=== PATIENT | female | born 1990 | race Caucasian/White ===

== ENCOUNTER 2019-03-20 11:01 | Inpatient (IN) ==
[2019-03-20] MEDS ORDERED: methylPREDNISolone 125 MG/2 ML VIAL IV STA (11:22)
[2019-03-20] MEDS ORDERED: ALBUT/IPRATROP 3MG/0.5MG NEB 3 ML VIAL NEB STA (11:22)
[2019-03-20] MEDS ORDERED: SODIUM CHLORIDE 0.9% 1000ML 1,000 ML IV SCH (11:30)
--- NOTE | 2019-03-20 11:40 | XRay Report ---
XR chest 1V portable CLINICAL HISTORY: Cough. SOB. Dyspnea COMPARISON STUDY: No previous studies for comparison. FINDINGS: Diffuse infiltrative process left lung. Left pleural effusion. Right lung is clear. IMPRESSION: 1. Diffuse infiltrate left hemithorax. 2. Left pleural effusion. The above report was generated using voice recognition software. It may contain grammatical, syntax or spelling errors. Electronically signed by: Donaldo Tran M.D. 03/20/2019 11:39 AM
[2019-03-20 12:16] LABS: Hematocrit (blood only) 32.7 % (37-47); Hemoglobin 11.4 g/dL (12.0-16.0); Mean Corpuscular Hemoglobin 30.3 pg (25-34); Mean Corpuscular Hgb Conc 34.9 g/dL (32-36); Platelet Count 369 K/uL (130-400); RDW Coefficient of Variation 12.9 % (11.5-14.5); RDW Standard Deviation 41.2 fL (36.4-46.3); Red Blood Count 3.76 M/uL (4.2-5.4); White Blood Count 13.25 K/uL (4.8-10.8)
[2019-03-20 12:16] LABS: Base Excess VBG 1.6 mEq/L; HCO3 VBG 26 mmol/L; PCO2 VBG 39 mmHg (38-50); PO2 VBG 23 mmHg; pH VBG 7.44 (7.36-7.41)
[2019-03-20 12:24] LABS: Oxygen Saturation VBG < 60.0 %
[2019-03-20] MEDS ORDERED: ACETAMINOPHEN 1,000 MG/100 ML VIAL IV STA (12:24)
[2019-03-20] MEDS ORDERED: KETOROLAC 30 MG/ML VIAL IV STA (12:24)
[2019-03-20 12:33] LABS: Alanine Aminotransferase 24 U/L (12-78); Albumin Level 2.3 gm/dl (3.4-5.0); Aspartate Aminotransferase 24 U/L (15-37); BUN Creatinine Ratio 19.4 (10-20); Basophils # (auto) 0.01 K/uL (0-0.2); Basophils % (auto) 0.1 %; Blood Urea Nitrogen 17 mg/dl (7-18); Calcium 8.7 mg/dl (8.5-10.1); Carbon Dioxide 26 mmol/L (21-32); Chloride 99 mmol/L (98-107); Creatinine Clr Calc Pharmacy 87.2 ml/min; Dohle Bodies 2+; Est GFR (African American) 102.3; Est GFR (Non-African American) 88.2; Glucose 88 mg/dl (70-99); Immature Granulocytes # (auto) 0.22 K/uL (0.00-0.02); Immature Granulocytes % (auto) 1.7 %; Lipase 21 U/L (73-393); Lymphocytes # (auto) 0.42 K/uL (1.2-3.4); Lymphocytes % (auto) 3.2 %; Magnesium 1.9 mg/dl (1.8-2.4); Monocytes # (auto) 0.31 K/uL (0.11-0.59); Monocytes % (auto) 2.3 %; Neutrophils # (auto) 12.29 K/uL (1.4-6.5); Neutrophils % (auto) 92.7 %; Rouleaux 1+; Sodium 133 mmol/L (136-145); Toxic Granulation 2+; Toxic Vacuolation 1+
[2019-03-20 12:44] LABS: Albumin Globulin Ratio 0.4 (0.9-2); Alkaline Phosphatase 94 U/L (45-117); Bilirubin,Total 0.5 mg/dl (0.2-1); Globulin 5.3 gm/dl (2.5-4.0); Total Protein 7.6 gm/dl (6.4-8.2); Troponin I < 0.015 ng/ml (0-0.045)
[2019-03-20 12:51] LABS: D Dimer 3790 ug/L FEU (0-500)
[2019-03-20] MEDS ORDERED: OPTIRAY 320 125ml IV PRN (13:03)
[2019-03-20 13:10] LABS: Appearance Urine Cloudy (Clear); Bacteria Urine Automated 4+ (Negative); Bilirubin Urine Negative (Negative); Blood Urine 2+ (Negative); Color Urine Yellow; Epithelial Cell Urine Auto 0-5 /lpf (0-5); Glucose Urine UA Negative (Negative); Ketones Urine Negative (Negative); Leukocyte Esterase Urine 1+ (Negative); Nitrite Urine Negative (Negative); Protein Urine 1+ (Negative); Specific Gravity Urine 1.012 (1.000-1.030); Urobilinogen Urine Negative (Negative); WBC Urine Automated >30 /hpf (0-5)
--- NOTE | 2019-03-20 13:39 | CT Scan Report ---
CT angio chest PE protocol CT DOSE: 555.23 mGy.cm HISTORY: Chest pain. Dyspnea. Atypical CXR TECHNIQUE: Multiaxial CT images of the chest were performed following the intravenous administration of contrast to evaluate the pulmonary arteries. Maximal intensity projection images were also obtaine d. A dose lowering technique was utilized adhering to the principles of ALARA. COMPARISON STUDY: Chest series same date FINDINGS: The right lung shows minimal scattered atelectatic change. There is minimal dependent right basilar change with the right lung otherwise clear. There is complete opacification of the geographic region of the left lower lobe. This primarily appea rs to represent lung consolidation with a small left pleural effusion component. The lower lobe bronchi are attenuated slightly distal to the hilum. Possibility of a component of asp iration must be raised. No evidence of pneumothorax. No acute bony abnormality. IMPRESSION: 1. Complete consolidation of the left lower lobe with truncation of the proximal left lower lobe bron chial structures.. 2. Possibly of aspiration and/or mucous plugging is considered. 3. Small left pleural effusion. 4. Minimal scattered atelectatic change of the right lung. 5. No evidence for major central pulmonary embolus. 6. Negative thoracic aorta. The above report was generated using voice recognition software. It may contain grammatical, syntax or spelling errors. Electronically signed by: Donaldo Tran M.D. 03/20/2019 1:38 PM
[2019-03-20] MEDS ORDERED: PIPERACILLIN/TAZOBACTAM 4.5 GM/120 ML BAG IV ONE (13:41)
[2019-03-20] MEDS ORDERED: VANCOMYCIN CONSULT ACTIVE PRN (13:41)
[2019-03-20] MEDS ORDERED: PIPERACILL/TAZOBAC CONSULT ACTIVE PRN (13:41)
[2019-03-20] MEDS ORDERED: VANCOMYCIN HCL 1,500 MG in SODIUM CHLORIDE 0.9% 500 ML IV ONE (13:41)
[2019-03-20] MEDS: SODIUM CHLORIDE 0.9% 1000ML 1,000 ML IV SCH ×2 (14:03→16:50)
--- NOTE | 2019-03-20 15:50 | History & Physical Report ---
Date of Service March 20, 2019 Assessment & Plan (1) Left lower lobe pneumonia: Admits to PCU on telemetry. Vital signs every 4 hours. Fluid hydration with normal saline at 100 cc/h. Started empirically vancomycin and Zosyn in the emergency room. Continue the same antibiotics since patient is allergic to cefazolin and azithromycin. Blood cultures, urine culture and sputum cultures pending. Follow-up with the results and adjust antibiotics as per upper repair specificity and sensitivity. PT lactic acid trended down from 2.1-2. Continue monitoring electrolytes and CBC and CMP. Duo nebs every 4 hours scheduled and as needed. Robitussin 10 mils p.o. every 6 hours as needed for cough. Ketorolac 15 mg IV every 6 hours as needed and Percocet 1 tablet p.o. every 4 hours as needed for pain management. Zofran for nausea. DVT prophylaxis Lovenox 40 mg subcu with nightly. Patient is a full code Present on Admission?: Yes (2) Urinary tract infection: Continue antibiotics as above. Follow-up urine culture. CT scan of abdomen and pelvis without contrast placed to rule out possible kidney stone or pyelonephritis since patient has over 30 WBC is in urine and no epithelial cells which appears to be a clean-catch. Leukocyte esterase is also elevated to 1+ nitrates were negative. Present on Admission?: Yes (3) Elevated procalcitonin: Patient is septic. Continue treating underlying disease -infection. Present on Admission?: Yes (4) Sepsis associated hypotension: As above. Continue treating underlying disease-infection. Hypotension resolved. Patient states that her blood pressure was always low. Present on Admission?: Yes History of Present Illness Chief Complaint: Cough and generalized malaise Primary Care Provider: NO PCP Patient is a 28 years old female from [place] without significant past medical history who presented to the emergency department for evaluation of fever cough and difficulty breathing. Patient states that she initially started with a low-grade fever 4 to 5 days ago. Patient denies any sick contacts. Patient is usually very healthy. Patient reports that in the past 24 hours she has worsening of her symptoms and nothing helped her to relieve it. Patient also reports having left lateral chest wall pain and cough that is becoming more productive. Patient takes control pills but denied any recent travel history. Patient was in the urgent care yesterday when she was given cough suppressant but that did not help her symptoms. This morning patient went to the urgent care again and at that point she was referred to the emergency room for further evaluation and treatment. She denies headache, dysuria, melena, nausea, vomiting. WBCs 14.68, hemoglobin 11.0 hematocrit 31.3 platelets 356, d- dimer 3790. ABG pH 7.44 PCO2 39, PO2 23, HCO3 26, sodium 133, potassium 3, chloride 99, BUN 17, creatinine 0.9, GFR 88.2 lactate 2.1 repeated 2, AST 24, ALT 24, troponin 0.015, Albumin 2.3, procalcitonin 9.6, TSH 1.44. Urine is cloudy with 1+, urine bacteria 4+, protein, 2+ blood, leukocyte esterase 1+, urine WBCs 30,urine test negative. Influenza AMB negative. CTA of the chest shows complete consolidation of the left lower lobe with truncation of the proximal left lower lobe bronchial strictures. Possibly of aspiration and of mucous plugging is considered. Small left pleural effusion. Minimal scattered atelectatic changes of the right lung. No evidence of major central pulmonary embolus. Negative thoracic aorta. Patient is not on her period. Decision was made to admit patient for pneumonia and further evaluation and treatment. Allergies Allergy/AdvReac Type Severity Reaction Status Date / Time azithromycin Allergy Mild Hives Unverified 03/20/19 13:19 cefazolin Allergy Mild Hives Unverified 03/20/19 13:19 Home Medications Home Medications Medication Instructions Recorded Confirmed Type Control 1 tab PO DAILY 03/20/19 03/20/19 History levomilnacipran [Fetzima] 120 mg PO 03/20/19 History lisdexamfetamine [Vyvanse] 40 mg PO DAILY 03/20/19 03/20/19 History multivitamin 1 tab PO DAILY 03/20/19 03/20/19 History Past Med/Surg History Medical History No chronic diseases present Surgical History No significant past surgical history Social History Preferred Language: Bulgarian Communication Ability: Effective Beliefs That Will Affect Care: None Current Living Situation: Parent Other Information That Helps Us Care for You: No Feels Safe at Home: Yes Safety Concerns: Feels Safe At This Time Smoking Status: Never smoker Hx Alcohol Use: Yes Hx Substance Use: No Review of Systems Review of Systems: All systems reviewed & are unremarkable except as noted in HPI & below Physical Exam Constitutional: WD/WN, vitals as above well developed and + obese Eyes: PERRL, conjunctivae normal, anicteric sclerae ENMT: external ear and nose normal, oropharynx normal Neck: trachea midline, no thyromegaly Respiratory: + respiratory distress, + labored breathing, + dullness to percussion, + cough and + tachypneic Auscultation: + crackles and + wheezes Cardiovascular: Rate/Rhythm: + tachycardic Heart Sounds: normal S1 and normal S2 Vessels: dorsalis pedis pulses present Chest (Breasts): normal inspection/palpation of breasts Gastrointestinal (Abdomen): normal bowel sounds, soft, nontender, no hepatosplenomegaly Musculoskeletal: no cyanosis or clubbing, extremities motor strength 5/5 Skin: no rashes, warm and dry Neurologic: patellar DTR's 2+ bilat, sensation intact Psychiatric: A+Ox3, euthymic affect Genitourinary: No suprapubic tenderness or costovertebral angle tenderness Lymphatic: no cervical or axillary lymphadenopathy Results & Data Vital Signs (Past 12 Hours) Vital Signs Temp Pulse Pulse Resp BP BP Pulse Ox 03/20/19 15:00 124 H 30 H 102/64 99 03/20/19 14:00 124 H 27 H 102/64 98 03/20/19 12:07 135 H 36 H 106/65 95 03/20/19 11:44 134 H 28 H 93 03/20/19 11:24 132 H 95 03/20/19 11:05 36.9 C 136 H 26 H 107/71 93 Code Status & VTE Plan Code Status Full code VTE Prophylaxis Plan VTE Prophylaxis will be ordered: Yes PG Care Time/CCT Total # of Minutes Spent Total Time Spent with Patient: Total time spent is greater than 50% in coordination of care (as documented) at patient's floor/unit and/or counseling patient: (1) Left lower lobe pneumonia Pneumonia type: due to unspecified organism Qualified Code(s): J18.9 - Pneumonia, unspecified organism
[2019-03-20] MEDS ORDERED: ACETAMINOPHEN 325 MG TAB PO PRN (16:29)
[2019-03-20] MEDS ORDERED: ALUMINUM/MAGNESIUM SUSP 30 ML UDC PO PRN (16:29)
[2019-03-20] MEDS ORDERED: ZOLPIDEM TARTRATE 5 MG TAB PO PRN (16:29)
[2019-03-20] MEDS ORDERED: POLYETHYLENE (MIRALAX) 17 GM PACK PO PRN (16:29)
[2019-03-20] MEDS ORDERED: ONDANSETRON INJ 2 MG/ML 2 ML VIAL IV PRN (16:29)
[2019-03-20] MEDS ORDERED: MAGNESIUM HYDROXIDE SUSP 30 ML UDC PO PRN (16:29)
--- NOTE | 2019-03-20 16:33 | Emergency Department Note ---
History of Present Illness General Chief complaint: Respiratory Problems Stated complaint: COUGH, CONGESTION, LOW O2 Time Seen by Provider: 03/20/19 11:14 History of Present Illness Maximum Pain Intensity: 7 This is a 28-year-old female presenting to the emergency department for evaluation of fever, coughing, and difficulty breathing. The patient states that she initially started with a low-grade fever 4 or 5 days ago. She does not have any known exposure to disease and states that she is usually healthy. Over the past 24 hours she has had worsening of her symptoms. She is having very left lateral chest wall pain and the cough is becoming more productive. The patient is on control but denies any recent travel history. No extremity swelling. She went to an urgent care clinic yesterday, where she was given a cough suppressant that did not help her symptoms. She returned to an urgent care clinic this morning, and was referred to the ER for further management. She rates her overall discomfort a 7/10. Home Medications Home Medications Medication Instructions Recorded Confirmed Type Control 1 tab PO DAILY 03/20/19 03/20/19 History levomilnacipran [Fetzima] mg PO 03/20/19 History lisdexamfetamine [Vyvanse] 40 mg PO DAILY 03/20/19 03/20/19 History multivitamin 1 tab PO DAILY 03/20/19 03/20/19 History Allergies Allergy/AdvReac Type Severity Reaction Status Date / Time azithromycin Allergy Mild Hives Unverified 03/20/19 13:19 cefazolin Allergy Mild Hives Unverified 03/20/19 13:19 Past Med/Surg History Medical History (Updated 03/20/19 @ 16:43 by Shar Moya PA-C) No chronic diseases present Surgical History (Updated 03/20/19 @ 16:26 by Shar Moya PA-C) No significant past surgical history Social History Preferred Language: [place] Communication Ability: Effective Beliefs That Will Affect Care: None Current Living Situation: Parent Other Information That Helps Us Care for You: No Feels Safe at Home: Yes Safety Concerns: Feels Safe At This Time Smoking Status: Never smoker Hx Alcohol Use: Yes Hx Substance Use: No Review of Systems A total of 10 systems reviewed and were otherwise negative Physical Exam Vital Signs Vital Signs - 24 hr 03/20/19 11:05 03/20/19 11:24 03/20/19 11:44 Temperature 36.9 C Temperature Source Oral Pulse Rate 136 H 132 H Pulse Rate [Apical] 134 H Pulse Rhythm Regular Respiratory Rate 26 H 28 H Respiratory Effort / Characteristics Spontaneous Spontaneous Labored Short of Breath Respiratory Depth Respiratory Pattern Blood Pressure 107/71 Blood Pressure [Right Arm] Blood Pressure Mean 83 Blood Pressure Mean [Right Arm] Blood Pressure Position [Right Arm] Pulse Oximetry 93 95 93 Oxygen Delivery Method Room Air Room Air Room Air Oxygen Flow Rate Sepsis Recent Fever Within 48 Hours Yes Sepsis New/Unexplained Change in Mental Status No Sepsis Action Taken by Nursing No Action Required 03/20/19 12:07 03/20/19 14:00 03/20/19 15:00 Temperature Temperature Source Pulse Rate Pulse Rate [Apical] 135 H 124 H 124 H Pulse Rhythm Respiratory Rate 36 H 27 H 30 H Respiratory Effort / Characteristics Short of Breath Non-Labored Spontaneous Spontaneous Respiratory Depth Normal Normal Respiratory Pattern Regular Blood Pressure Blood Pressure [Right Arm] 106/65 102/64 102/64 Blood Pressure Mean Blood Pressure Mean [Right Arm] 78 76 76 Blood Pressure Position [Right Arm] Lying Sitting Lying Pulse Oximetry 95 98 99 Oxygen Delivery Method Room Air Nasal Cannula Nasal Cannula Oxygen Flow Rate 2 2 Sepsis Recent Fever Within 48 Hours Sepsis New/Unexplained Change in Mental Status Sepsis Action Taken by Nursing VITALS: Vitals are noted on the nurse's note and reviewed by myself. Vital signs with tachycardia and tachypnea. GENERAL: Ill-appearing white female who is coughing HEAD: Normocephalic atraumatic. EARS: External ear normal. External auditory canals clear, tympanic membranes pearly sanz without erythema or effusion bilaterally. EYES: Pupils equal round and reactive to light and accommodation. Conjunctivae without injection, sclerae without icterus. Extraocular movements intact. NOSE: Patent, turbinates without inflammation or discharge. MOUTH: Mucous membranes moist. Tonsils are not enlarged. Pharynx without erythema, blood, or exudate. Uvula midline. Airway patent. NECK: Supple without nuchal rigidity. No lymphadenopathy. No thyromegaly. Cer vical spine is nontender. HEART: Regular rate and rhythm without murmurs gallops or rubs. LUNGS: Diminished left-sided breath sounds. ABDOMEN: Positive normal bowel sounds x 4. Soft, nontender, without masses or organomegaly. MUSCULOSKELETAL: No muscle atrophy, erythema, or edema noted. Full range of motion in all extremities. NEURO: Patient was alert and oriented to person place and time. CN II through XII grossly intact. Course Administered Medications Discontinued Medications Albuterol (Duoneb) 3 ml NEB NOW STA Stop: 03/20/19 11:23 Last Admin: 03/20/19 11:42 Dose: 3 ml Documented by: [id number] Sodium Chloride (Nss 1000ml) 1,000 mls @ 999 mls/hr IV .Q1H1M E[place] Stop: 03/20/19 12:30 Last Infusion: 03/20/19 13:13 Dose: 0 mls/hr Documented by: [id number] Admin: 03/20/19 12:05 Dose: 999 mls/hr Documented by: [id number] Acetaminophen (Ofirmev) 1,000 mg in 100 mls @ 400 mls/hr IV NOW STA Stop: 03/20/19 12:38 Last Infusion: 03/20/19 13:13 Dose: 0 mls/hr Documented by: [id number] Admin: 03/20/19 12:41 Dose: 400 mls/hr Documented by: [id number] Vancomycin HCl 1,500 mg/ (Sodium Chloride) 530 mls @ 200 mls/hr IV NOW ONE Stop: 03/20/19 16:19 Last Admin: 03/20/19 14:54 Dose: 200 mls/hr Documented by: [id number] Piperacillin Sod/Tazobactam Sod (Zosyn) 4.5 gm in 120 mls @ 240 mls/hr IV NOW ONE Stop: 03/20/19 14:10 Last Infusion: 03/20/19 15:04 Dose: 0 mls/hr Documented by: [id number] Admin: 03/20/19 14:02 Dose: 240 mls/hr Documented by: [id number] Sodium Chloride (Nss 1000ml) 1,000 mls @ 999 mls/hr IV .Q1H1M [place] Stop: 03/20/19 15:44 Last Infusion: 03/20/19 15:04 Dose: 0 mls/hr Documented by: [id number] Admin: 03/20/19 14:03 Dose: 999 mls/hr Documented by: [id number] Ioversol (Optiray 320 125ml) 82 ml IV ONCE PRN PRN Reason: Interaction Checking Stop: 03/24/19 13:02 Last Admin: 03/20/19 13:05 Dose: 82 ml Documented by: [id number] Ketorolac Tromethamine (Toradol) 30 mg IV NOW STA Stop: 03/20/19 12:25 Last Admin: 03/20/19 12:41 Dose: 30 mg Documented by: [id number] Methylprednisolone (Solumedrol) 125 mg IV NOW STA Stop: 03/20/19 11:23 Last Admin: 03/20/19 12:05 Dose: 125 mg Documented by: [id number] Medical Decision Making Differential Diagnosis Differential diagnosis: Etiologies such as viral syndrome, otitis, pharyngitis, pneumonia, influenza, meningitis, urinary tract infection, septic arthritis, soft tissue infectious process, intra-abdominal process, sepsis, bacteremia, as well as others were entertained. Laboratory Data Result diagrams: 03/20/19 11:58 03/20/19 11:58 Lab Results 03/20/19 03/20/19 03/20/19 Range/Units 11:35 11:58 11:58 WBC 13.25 H (4.8-10.8) K/uL RBC 3.76 L (4.2-5.4) M/uL Hgb 11.4 L (12.0-16.0) g/dL Hct 32.7 L (37-47) % MCV 87.0 (80-100) fL MCH 30.3 (25-34) pg MCHC 34.9 (32-36) g/dL RDW Std Deviation 41.2 (36.4-46.3) fL RDW Coeff of Hilton 12.9 (11.5-14.5) % Plt Count 369 (130-400) K/uL MPV 9.0 (7.4-10.4) fL Immature Gran % (Auto) 1.7 % Neut % (Auto) 92.7 % Lymph % (Auto) 3.2 % Falls % (Auto) 2.3 % Eos % (Auto) 0.0 % Baso % (Auto) 0.1 % Immature Gran # (Auto) 0.22 H (0.00-0.02) K/uL Neut # (Auto) 12.29 H (1.4-6.5) K/uL Lymph # (Auto) 0.42 L (1.2-3.4) K/uL Falls # (Auto) 0.31 (0.11-0.59) K/uL Eos # (Auto) 0.00 (0-0.5) K/uL Baso # (Auto) 0.01 (0-0.2) K/uL Toxic Granulation 2+ Toxic Vacuolation 1+ Dohle Bodies 2+ Rouleaux 1+ D-Dimer 3790 H* (0-500) ug/L FEU VBG pH (7.36-7.41) VBG pCO2 (38-50) mmHg VBG pO2 mmHg VBG HCO3 mmol/L VBG O2 Saturation % VBG Base Excess mEq/L Barometric Pressure mm/Hg Sodium (136-145) mmol/L Potassium (3.5-5.1) mmol/L Chloride (98-107) mmol/L Carbon Dioxide (21-32) mmol/L Anion Gap (3-11) BUN (7-18) mg/dl Creatinine (0.6-1.2) mg/dl Est Cr Clr Drug Dosing ml/min Est GFR ( Amer) Est GFR (Non-Af Amer) BUN/Creatinine Ratio (10-20) Glucose (70-99) mg/dl Lactate (0.4-2.0) mmol/L Calcium (8.5-10.1) mg/dl Magnesium (1.8-2.4) mg/dl Total Bilirubin (0.2-1) mg/dl AST (15-37) U/L ALT (12-78) U/L Alkaline Phosphatase (45-117) U/L Troponin I (0-0.045) ng/ml Total Protein (6.4-8.2) gm/dl Albumin (3.4-5.0) gm/dl Globulin (2.5-4.0) gm/dl Albumin/Globulin Ratio (0.9-2) Lipase (73-393) U/L Procalcitonin (0-0.5) ng/ml TSH (0.300-4.500) uIu/ml Urine Color Urine Appearance (Clear) Urine pH (4.5-7.5) Ur Specific [place] (1.000-1.030) Urine Protein (Negative) Urine Glucose (UA) (Negative) Urine Ketones (Negative) Urine Blood (Negative) Urine Nitrite (Negative) Urine Bilirubin (Negative) Urine Urobilinogen (Negative) Ur Leukocyte Esterase (Negative) Urine WBC (Auto) (0-5) /hpf Urine RBC (Auto) (0-4) /hpf U Hyaline Cast (Auto) (0-5) /lpf U Epithel Cells (Auto) (0-5) /lpf Urine Bacteria (Auto) (Negative) POC Ur Test (NEG) Influenza Type A Ag Neg for Influ A (Neg) Influenza Type B Ag Neg for Influ B (Neg) 03/20/19 03/20/19 03/20/19 Range/Units 11:58 11:58 11:58 WBC (4.8-10.8) K/uL RBC (4.2-5.4) M/uL Hgb (12.0-16.0) g/dL Hct (37-47) % MCV (80-100) fL MCH (25-34) pg MCHC (32-36) g/dL RDW Std Deviation (36.4-46.3) fL RDW Coeff of Hilton (11.5-14.5) % Plt Count (130-400) K/uL MPV (7.4-10.4) fL Immature Gran % (Auto) % Neut % (Auto) % Lymph % (Auto) % Falls % (Auto) % Eos % (Auto) % Baso % (Auto) % Immature Gran # (Auto) (0.00-0.02) K/uL Neut # (Auto) (1.4-6.5) K/uL Lymph # (Auto) (1.2-3.4) K/uL Falls # (Auto) (0.11-0.59) K/uL Eos # (Auto) (0-0.5) K/uL Baso # (Auto) (0-0.2) K/uL Toxic Granulation Toxic Vacuolation Dohle Bodies Rouleaux D-Dimer (0-500) ug/L FEU VBG pH (7.36-7.41) VBG pCO2 (38-50) mmHg VBG pO2 mmHg VBG HCO3 mmol/L VBG O2 Saturation % VBG Base Excess mEq/L Barometric Pressure mm/Hg Sodium 133 L (136-145) mmol/L Potassium 3.0 L (3.5-5.1) mmol/L Chloride 99 (98-107) mmol/L Carbon Dioxide 26 (21-32) mmol/L Anion Gap 8.0 (3-11) BUN 17 (7-18) mg/dl Creatinine 0.90 (0.6-1.2) mg/dl Est Cr Clr Drug Dosing 87.2 ml/min Est GFR ( Amer) 102.3 Est GFR (Non-Af Amer) 88.2 BUN/Creatinine Ratio 19.4 (10-20) Glucose 88 (70-99) mg/dl Lactate 2.1 H* (0.4-2.0) mmol/L Calcium 8.7 (8.5-10.1) mg/dl Magnesium 1.9 (1.8-2.4) mg/dl Total Bilirubin 0.5 (0.2-1) mg/dl AST 24 (15-37) U/L ALT 24 (12-78) U/L Alkaline Phosphatase 94 (45-117) U/L Troponin I < 0.015 (0-0.045) ng/ml Total Protein 7.6 (6.4-8.2) gm/dl Albumin 2.3 L (3.4-5.0) gm/dl Globulin 5.3 H (2.5-4.0) gm/dl Albumin/Globulin Ratio 0.4 L (0.9-2) Lipase 21 L (73-393) U/L Procalcitonin 9.60 H (0-0.5) ng/ml TSH 1.440 (0.300-4.500) uIu/ml Urine Color Urine Appearance (Clear) Urine pH (4.5-7.5) Ur Specific [place] (1.000-1.030) Urine Protein (Negative) Urine Glucose (UA) (Negative) Urine Ketones (Negative) Urine Blood (Negative) Urine Nitrite (Negative) Urine Bilirubin (Negative) Urine Urobilinogen (Negative) Ur Leukocyte Esterase (Negative) Urine WBC (Auto) (0-5) /hpf Urine RBC (Auto) (0-4) /hpf U Hyaline Cast (Auto) (0-5) /lpf U Epithel Cells (Auto) (0-5) /lpf Urine Bacteria (Auto) (Negative) POC Ur Test (NEG) Influenza Type A Ag (Neg) Influenza Type B Ag (Neg) 03/20/19 03/20/19 03/20/19 Range/Units 12:03 12:45 12:45 WBC (4.8-10.8) K/uL RBC (4.2-5.4) M/uL Hgb (12.0-16.0) g/dL Hct (37-47) % MCV (80-100) fL MCH (25-34) pg MCHC (32-36) g/dL RDW Std Deviation (36.4-46.3) fL RDW Coeff of Hilton (11.5-14.5) % Plt Count (130-400) K/uL MPV (7.4-10.4) fL Immature Gran % (Auto) % Neut % (Auto) % Lymph % (Auto) % Falls % (Auto) % Eos % (Auto) % Baso % (Auto) % Immature Gran # (Auto) (0.00-0.02) K/uL Neut # (Auto) (1.4-6.5) K/uL Lymph # (Auto) (1.2-3.4) K/uL Falls # (Auto) (0.11-0.59) K/uL Eos # (Auto) (0-0.5) K/uL Baso # (Auto) (0-0.2) K/uL Toxic Granulation Toxic Vacuolation Dohle Bodies Rouleaux D-Dimer (0-500) ug/L FEU VBG pH 7.44 H (7.36-7.41) VBG pCO2 39 (38-50) mmHg VBG pO2 23 mmHg VBG HCO3 26 mmol/L VBG O2 Saturation < 60.0 % VBG Base Excess 1.6 mEq/L Barometric Pressure 733.1 mm/Hg Sodium (136-145) mmol/L Potassium (3.5-5.1) mmol/L Chloride (98-107) mmol/L Carbon Dioxide (21-32) mmol/L Anion Gap (3-11) BUN (7-18) mg/dl Creatinine (0.6-1.2) mg/dl Est Cr Clr Drug Dosing ml/min Est GFR ( Amer) Est GFR (Non-Af Amer) BUN/Creatinine Ratio (10-20) Glucose (70-99) mg/dl Lactate (0.4-2.0) mmol/L Calcium (8.5-10.1) mg/dl Magnesium (1.8-2.4) mg/dl Total Bilirubin (0.2-1) mg/dl AST (15-37) U/L ALT (12-78) U/L Alkaline Phosphatase (45-117) U/L Troponin I (0-0.045) ng/ml Total Protein (6.4-8.2) gm/dl Albumin (3.4-5.0) gm/dl Globulin (2.5-4.0) gm/dl Albumin/Globulin Ratio (0.9-2) Lipase (73-393) U/L Procalcitonin (0-0.5) ng/ml TSH (0.300-4.500) uIu/ml Urine Color Yellow Urine Appearance Cloudy A (Clear) Urine pH 6.0 (4.5-7.5) Ur Specific [place] 1.012 (1.000-1.030) Urine Protein 1+ H (Negative) Urine Glucose (UA) Negative (Negative) Urine Ketones Negative (Negative) Urine Blood 2+ H (Negative) Urine Nitrite Negative (Negative) Urine Bilirubin Negative (Negative) Urine Urobilinogen Negative (Negative) Ur Leukocyte Esterase 1+ H (Negative) Urine WBC (Auto) >30 H (0-5) /hpf Urine RBC (Auto) 10-30 H (0-4) /hpf U Hyaline Cast (Auto) 1-5 (0-5) /lpf U Epithel Cells (Auto) 0-5 (0-5) /lpf Urine Bacteria (Auto) 4+ H (Negative) POC Ur Test NEG (NEG) Influenza Type A Ag (Neg) Influenza Type B Ag (Neg) Imaging Data Radiologist's Impression: XR chest 1V portable CLINICAL HISTORY: Cough. SOB. Dyspnea COMPARISON STUDY: No previous studies for comparison. FINDINGS: Diffuse infiltrative process left lung. Left pleural effusion. Right lung is clear. IMPRESSION: 1. Diffuse infiltrate left hemithorax. 2. Left pleural effusion. CT angio chest PE protocol CT DOSE: 555.23 mGy.cm HISTORY: Chest pain. Dyspnea. Atypical CXR TECHNIQUE: Multiaxial CT images of the chest were performed following the intrav enous administration of contrast to evaluate the pulmonary arteries. Maximal intensity projection images were also obtained. A dose lowering technique was utilized adhering to the principles of ALARA. COMPARISON STUDY: Chest series same date FINDINGS: The right lung shows minimal scattered atelectatic change. There is minimal dependent right basilar change with the right lung otherwise clear. There is complete opacification of the geographic region of the left lower lobe. This primarily appears to represent lung consolidation with a small left pleural effusion component. The lower lobe bronchi are attenuated slightly distal to the hilum. Possibility of a component of aspiration must be raised. No evidence of pneumothorax. No acute bony abnormality. IMPRESSION: 1. Complete consolidation of the left lower lobe with truncation of the proximal left lower lobe bronchial structures.. 2. Possibly of aspiration and/or mucous plugging is considered. 3. Small left pleural effusion. 4. Minimal scattered atelectatic change of the right lung. 5. No evidence for major central pulmonary embolus. 6. Negative thoracic aorta. ECG Data Additional Comments: Sinus tachycardia @129bpm No Acute ST elevation Moderate voltage criteria for LVH, may be normal variant Borderline ECG No previous ECGs available MDM Narrative Physical exam and history were performed. Nursing notes, EMR, and Medication List were personally reviewed. Patient appears to have illness symptoms for the past several days. The patient appears ill on exam. IV access was established and labs were obtained. She was given a DuoNeb and IV Solu-Medrol. She was hydrated with normal saline. Portable chest x-ray was performed, and was reviewed by myself and radiology. Portable chest x-ray appears to show diffuse left sided pneumonia. Because of this blood cultures were gathered. Case was discussed with my attending. The patient's blood work is as above and was reviewed. She does have an elevated white blood cell count of 13,000. She does not have a significant anemia. Lipase and transaminases are not diagnostic. Troponin x1 is negative. Lactic is slightly elevated at 2.1 with cultures pending. Procalcitonin is markedly elevated at 9.6. Her d-dimer is nearly [address] scan was performed. She is without obvious infectious findings in her urine and is not . Of note she is not having UTI symptoms. Influenza swab is negative. The patient's CT scan was reviewed by myself and radiology. CT scan shows what appears to be an extensive left-sided pneumonia. I did discuss the patient's allergies with pharmacy and elected to start her on vancomycin and Zosyn here. The patient was given additional fluids. Overall the patient does not appear well for discharge home. She has an extensive pneumonia with an elevated lactic and elevated procalcitonin. She c ertainly could be septic. Of note I did provide her Toradol and Tylenol for some left-sided chest wall pain, which I suspect is from the pneumonia itself. Her cardiac testing is normal. I did discuss the case with the on-call hospitalist who agreed to evaluate the patient. Please see their dictation for further patient course, plan, and disposition. The chart was completed utilizing [employer] Speech Voice Recognition Software. Grammatical errors, random word insertions, pronoun errors, and incomplete sentences are an occasional consequence of this system due to software limitations, ambient noise, and hardware issues. Any formal questions or concerns about the content, text, or information contained within the body of this dictation should be directly addressed to the provider for clarification. . Impression & Plan Left lower lobe pneumonia, Elevated lactic acid level, Elevated procalcitonin Discharge Plan Visit Data *Final* Discharge Date/Time: 03/20/19 16:00 Chief Complaint: Respiratory Problems Stated Complaint: COUGH, CONGESTION, LOW O2 ED Provider: Doc Alvarez ED Midlevel Provider: Shar Moya Discharge Problem: Left lower lobe pneumonia, Elevated lactic acid level, Elevated procalcitonin Patient Disposition: Home - Self-Care Discharge Instructions Interventions: ED Discharge Assessment Last Done: 03/20/19 16:00 Discharge Problem: Left lower lobe pneumonia Qualifiers: Pneumonia type: due to unspecified organism Qualified Code(s): J18.9 - Pneumonia, unspecified organism
[2019-03-20 17:11] LABS: Hematocrit (blood only) 31.3 % (37-47); Mean Corpuscular Hemoglobin 30.6 pg (25-34); Mean Corpuscular Hgb Conc 35.1 g/dL (32-36); Mean Corpuscular Volume 87.2 fL (80-100); Mean Platelet Volume 8.9 fL (7.4-10.4); Platelet Count 356 K/uL (130-400); RDW Coefficient of Variation 12.9 % (11.5-14.5); RDW Standard Deviation 41.7 fL (36.4-46.3); Red Blood Count 3.59 M/uL (4.2-5.4); White Blood Count 14.68 K/uL (4.8-10.8)
[2019-03-20 17:39] LABS: Basophils # (auto) 0.01 K/uL (0-0.2); Basophils % (auto) 0.1 %; Dohle Bodies 1+; Immature Granulocytes % (auto) 1.4 %; Lymphocytes # (auto) 0.28 K/uL (1.2-3.4); Lymphocytes % (auto) 1.9 %; Monocytes # (auto) 0.33 K/uL (0.11-0.59); Monocytes % (auto) 2.2 %; Neutrophils # (auto) 13.86 K/uL (1.4-6.5); Neutrophils % (auto) 94.4 %; Toxic Granulation 1+; Toxic Vacuolation 1+
[2019-03-20] MEDS: MULTIVITAMIN TAB PO SCH (17:50)
[2019-03-20] MEDS: NSS + 20MEQ KCL 20 MEQ/1,000 ML BAG IV SCH (17:50)
[2019-03-20] MEDS: OXYCODONE/ACETAMINOPHEN 5mg/325mg TAB PO PRN (17:54)
[2019-03-20] MEDS: ALBUT/IPRATROP 3MG/0.5MG NEB 3 ML VIAL NEB SCH ×2 (18:57→22:46)
[2019-03-20] MEDS: PIPERACILLIN/TAZOBACTAM 3.375 GM in DEXTROSE 5% 100 ML IV SCH (20:25)
[2019-03-20] MEDS: ENOXAPARIN INJ 40 MG/0.4 ML SYR SQ SCH (20:26)
--- NOTE | 2019-03-20 21:49 | CT Scan Report ---
CT abd pelvis wo con CT DOSE: 828.94 mGy.cm HISTORY: hematuria, pyelo? TECHNIQUE: Multiaxial CT images of the abdomen and pelvis were performed without contrast. A dose lo wering technique was utilized adhering to the principles of ALARA. COMPARISON STUDY: CT chest 03/20/2019 FINDINGS: Complete consolidative change of the left lower lobe with truncation the lower lobe bronchi al structures is again noted. Mild hepatomegaly. Spleen is unremarkable. Kidneys negative for hydronephrosis. Residual contrast from prior contrast study is present. Pancreas is unremarkable. Nonobstructive bowel pattern. Normal appendix. Possible mild small bowel enteritis. Uterus is anteflexed. No free fluid of significance within the pelvic cul-de-sac. Small bilateral ova mandy flexure cyst. IMPRESSION: 1. Unchanged complete consolidative change left lower lobe. 2. Mild cardiomegaly. 3. Mild small bowel enteritis. 4. Otherwise negative study. The appendix is normal. The above report was generated using voice recognition software. It may contain grammatical, syntax or spelling errors. Electronically signed by: Donaldo Tran M.D. 03/20/2019 9:47 PM
--- NOTE | 2019-03-20 21:55 | Pharmacy Report ---
Pharmacy Abx Dose Short Note - Date of Service March 20, 2019 - Assessment & Plan Assessment 28 year old F receiving IV Vancomycin and Zosyn for treatment of sepsis secondary to pneumonia Day # 1 of antimicrobial therapy. * Patient received Vancomycin 1500mg (~21mg/kg) IV x 1 as a loading dose * No renal impairment noted. Most recent sCr = 0.9 mg/dL, estimated CrCl ~87 mL/min. Estimated pharmacokinetics: * Ke ~0.077/hr, T1/2 ~9 hrs Plan Vancomycin * Initiate dose of 1000 mg (14mg/kg) IV every 8 hours * Goal trough level for pneumonia : 15 to 20 mcg/mL * Trough level ordered for: 03/22/19 @ 0530 * MRSA nasal swab ordered to assist with potential de-escalation Zosyn * Zosyn 4.5g IV x 1 given as loading dose in the ED * Initiate Zosyn 3.375g IV q8 (extended infusion over 4 hours) for CrCl >20 mL/min Pharmacy will continue to follow and will adjust dose/frequency as necessary. Thank you.
[2019-03-20] MEDS: VANCOMYCIN HCL 1,000 MG in SODIUM CHLORIDE 0.9% 250 ML IV SCH (22:03)
[2019-03-20] MEDS: KETOROLAC TROMETHAMINE 15 MG/ML VIAL IV PRN (22:04)
[2019-03-20] MEDS: GUAIFENESIN/DEXTROM SYRUP 200MG/20MG 10ML UDC PO PRN (23:18)
[2019-03-21] MEDS: [UNRECOGNIZED DRUG - REMARK] SCH ×2 (00:31→09:26)
[2019-03-21] MEDS: ALBUT/IPRATROP 3MG/0.5MG NEB 3 ML VIAL NEB SCH ×6 (03:10→22:12)
[2019-03-21] MEDS: NSS + 20MEQ KCL 20 MEQ/1,000 ML BAG IV SCH (03:16)
[2019-03-21] MEDS: PIPERACILLIN/TAZOBACTAM 3.375 GM in DEXTROSE 5% 100 ML IV SCH (03:17)
[2019-03-21] MEDS: KETOROLAC TROMETHAMINE 15 MG/ML VIAL IV PRN ×3 (04:33→22:41)
[2019-03-21] MEDS: VANCOMYCIN HCL 1,000 MG in SODIUM CHLORIDE 0.9% 250 ML IV SCH (06:11)
[2019-03-21 06:21] LABS: Hematocrit (blood only) 29.2 % (37-47); Mean Corpuscular Hemoglobin 29.7 pg (25-34); Mean Corpuscular Hgb Conc 34.2 g/dL (32-36); Mean Corpuscular Volume 86.6 fL (80-100); Mean Platelet Volume 9.4 fL (7.4-10.4); Platelet Count 348 K/uL (130-400); RDW Coefficient of Variation 13.3 % (11.5-14.5); RDW Standard Deviation 42.3 fL (36.4-46.3); Red Blood Count 3.37 M/uL (4.2-5.4); White Blood Count 15.15 K/uL (4.8-10.8)
[2019-03-21 06:53] LABS: Albumin Level 1.9 gm/dl (3.4-5.0); BUN Creatinine Ratio 16.8 (10-20); Calcium 8.5 mg/dl (8.5-10.1); Creatinine Clr Calc Pharmacy 118.4 ml/min; Est GFR (African American) 140.6; Est GFR (Non-African American) 121.3; Potassium 3.1 mmol/L (3.5-5.1)
[2019-03-21 06:57] LABS: Albumin Globulin Ratio 0.4 (0.9-2); Bilirubin,Total 0.3 mg/dl (0.2-1); Globulin 4.9 gm/dl (2.5-4.0); Total Protein 6.8 gm/dl (6.4-8.2)
[2019-03-21 07:01] LABS: Basophils # (auto) 0.01 K/uL (0-0.2); Basophils % (auto) 0.1 %; Dohle Bodies 1+; Immature Granulocytes # (auto) 0.07 K/uL (0.00-0.02); Immature Granulocytes % (auto) 0.5 %; Lymphocytes # (auto) 0.49 K/uL (1.2-3.4); Lymphocytes % (auto) 3.2 %; Monocytes # (auto) 0.53 K/uL (0.11-0.59); Monocytes % (auto) 3.5 %; Neutrophils # (auto) 14.05 K/uL (1.4-6.5); Neutrophils % (auto) 92.7 %; Toxic Granulation 3+
[2019-03-21] MEDS: MULTIVITAMIN TAB PO SCH (11:32)
[2019-03-21] MEDS: LEVOMILNACIPRAN HCL PO SCH (11:32)
[2019-03-21] MEDS ORDERED: VYVANSE PO SCH ×2 (12:00)
--- NOTE | 2019-03-21 13:16 | Hospitalist Progress Note ---
Date of Service March 21, 2019 Assessment & Plan (1) Left lower lobe pneumonia: Community-acquired pneumonia. CT chest on 03/20 showed dense LLL consolidation. Has a history of two prior pneumonias requiring hospitalization in middle school (15 years ago), but no current asthma or other pulmonary issues. She denies any substantial alcohol use or recent emesis. No blacking out any time in the last few months. Aspiration is considered unlikely. - Images reviewed with Dr. Zhu on 03/21 - No need for pulm consult or bronchoscopy at this time - On admission, she was on vanc/Zosyn; however, MRSA swab is negative and she has no health-care association or reason for something other than CAP infection. - Switched to levofloxacin on 03/21 - Sputum cup at bedside; none so far. Legionella and Mycobacteria labs sent. - DuoNebs standing - O2 supplement - Patient has O2 sat of 93% on room air, but feels more comfortable on O2 right now - Pain medication for left flank pain from PNA (2) Urinary tract infection: CT a/p on 03/20 was negative for kidney stone or pyelonephritis. - Urine culture from 03/20 - Growing E. coli - Should be sensitive to levofloxacin - Follow sensitivities (3) Depression: Stable mood at present. - Continue home meds (4) DVT prophylaxis: Lovenox 40 mg daily Subjective Reports she doesn't feel that much better than yesterday. Still with shortness of breath. Some cough, but it is dry, so she is not producing sputum for a sample. Reports no fevers/chills, chest pain, abdominal pain, nausea, or vomiting. Physical Exam Constitutional: WD/WN, vitals as above Eyes: EOM intact bilaterally; no conjunctival abnormality ENMT: external ear and nose normal, oropharynx normal Neck: trachea midline, no thyromegaly normal visual inspection Respiratory: no respiratory distress Auscultation: + diminished lung sounds (Left base) Cardiovascular: Rate/Rhythm: regular rhythm and + tachycardic Heart Sounds: normal S1 and normal S2; no murmur Vessels: no JVD Extremities: no edema Gastrointestinal (Abdomen): Inspection/Auscultation: abdomen normal to inspection; abdomen not distended Musculoskeletal: no cyanosis or clubbing, extremities motor strength 5/5 Skin: no rashes, warm and dry Neurologic: moves all extremities and awake Psychiatric: Orientation: alert, oriented to person and cooperative Results & Data Vital Signs (Past 12 Hours) Vital Signs Temp Pulse Resp BP Pulse Ox 03/21/19 11:21 107 H 18 96 03/21/19 10:42 37.0 C 114 H 19 104/70 96 03/21/19 07:11 36.3 C L 103 H 20 99/63 L 98 03/21/19 07:07 109 H 16 98 03/21/19 03:24 36.5 C 106 H 16 96/68 L 95 03/21/19 03:11 106 H 14 95 PG Care Time/CCT Total # of Minutes Spent Total Time Spent with Patient: Total time spent is greater than 50% in coordination of care (as documented) at patient's floor/unit and/or counseling patient: (1) Left lower lobe pneumonia Pneumonia type: due to unspecified organism Qualified Code(s): J18.9 - Pneumonia, unspecified organism
[2019-03-21] MEDS: levoFLOXacin 750 MG TAB PO SCH (13:31)
[2019-03-21] MEDS: VYVANSE PO SCH (13:33)
[2019-03-21] MEDS: POTASSIUM CHLORIDE 10 MEQ TABCR PO SCH ×2 (14:09→20:55)
[2019-03-21] MEDS: GUAIFENESIN/DEXTROM SYRUP 200MG/20MG 10ML UDC PO PRN ×2 (14:10→23:13)
[2019-03-21] MEDS: OXYCODONE/ACETAMINOPHEN 5mg/325mg TAB PO PRN (14:11)
[2019-03-21] MEDS: ENOXAPARIN INJ 40 MG/0.4 ML SYR SQ SCH (20:55)
[2019-03-21] MEDS: guaiFENesin 600 MG TABCR PO SCH (20:55)
[2019-03-22] MEDS: ALBUT/IPRATROP 3MG/0.5MG NEB 3 ML VIAL NEB SCH ×6 (03:04→23:27)
[2019-03-22] MEDS ORDERED: VANCOMYCIN TROUGH ONE (05:30)
[2019-03-22 06:59] LABS: Hematocrit (blood only) 28.8 % (37-47); Hemoglobin 9.8 g/dL (12.0-16.0); Mean Corpuscular Hemoglobin 29.8 pg (25-34); Mean Corpuscular Volume 87.5 fL (80-100); Mean Platelet Volume 9.2 fL (7.4-10.4); Platelet Count 350 K/uL (130-400); RDW Coefficient of Variation 13.5 % (11.5-14.5); RDW Standard Deviation 43.7 fL (36.4-46.3); Red Blood Count 3.29 M/uL (4.2-5.4)
[2019-03-22 07:38] LABS: BUN Creatinine Ratio 33.6 (10-20); Calcium 9.1 mg/dl (8.5-10.1); Creatinine Clr Calc Pharmacy 139.9 ml/min; Est GFR (African American) 148.3; Est GFR (Non-African American) 127.9; Potassium 3.5 mmol/L (3.5-5.1)
[2019-03-22] MEDS: MULTIVITAMIN TAB PO SCH (08:21)
[2019-03-22] MEDS: guaiFENesin 600 MG TABCR PO SCH ×2 (08:21→20:45)
[2019-03-22] MEDS: LEVOMILNACIPRAN HCL PO SCH (08:22)
[2019-03-22] MEDS: VYVANSE PO SCH (08:22)
[2019-03-22] MEDS: KETOROLAC TROMETHAMINE 15 MG/ML VIAL IV PRN ×2 (09:16→19:44)
--- NOTE | 2019-03-22 10:09 | Hospitalist Progress Note ---
Date of Service March 22, 2019 Assessment & Plan (1) Left lower lobe pneumonia: Patient currently being treated for community acquired pneumonia. Was changed over to Levaquin on 03/21 which we can continue. Mycoplasma and Legionella was ordered and is still pending. Has DuoNeb ordered as needed. Can also order flutter valve for secretion mobilization of the patient can tolerate. Patient was also asking if she can continue to use oxygen as needed. Although she is satting well now she can be placed on 2 L as needed. (2) Urinary tract infection: Patient urine culture growing E. coli, unfortunately resistant to quinolones. We will add Macrobid for short course. This appears to be asymptomatic to the patient. (3) Depression: Stable mood at present. - Continue home meds (4) DVT prophylaxis: Lovenox 40 mg daily Subjective Patient is awake and alert. She appears to be in no distress. She does note she is having a little more chest wall pain along with worsening cough. She says this is not productive. She denies any urinary symptoms and seems surprised when I told her about a urinary tract infection. She has been afebrile. Physical Exam Physical Exam: Gen: AAOx3, NAD HEENT: neck supple, no JVD. MMM. Heart: RR, no murmurs Lungs: Somewhat diminished on the left side, bronchial breath sounds only in the left base. Dullness to percussion at the left base with some discomfort of the patient Abd: soft, nontender, nondistended. Normal BS Neuro: awake, alert. Nonfocal Psych: appropriate mood and affect Ext: No clubbing, cyanosis, edema Results & Data Vital Signs (Past 12 Hours) Vital Signs Temp Pulse Pulse Resp BP Pulse Ox 03/22/19 08:01 36.6 C 102 H 16 124/82 94 03/22/19 08:00 107 H 03/22/19 07:06 87 16 98 03/22/19 04:16 36.7 C 100 H 18 111/76 95 03/22/19 03:06 102 H 16 99 03/21/19 22:50 36.6 C 101 H 20 107/75 96 03/21/19 22:12 106 H 16 96 PG Care Time/CCT Total # of Minutes Spent Total Time Spent with Patient: Total time spent is greater than 50% in coordination of care (as documented) at patient's floor/unit and/or counseling patient: (1) Left lower lobe pneumonia Pneumonia type: due to unspecified organism Qualified Code(s): J18.9 - Pneumonia, unspecified organism
[2019-03-22] MEDS: NITROFURANTOIN MONOHYDRATE 100 MG CAP PO SCH ×2 (10:43→20:46)
[2019-03-22] MEDS: levoFLOXacin 750 MG TAB PO SCH (10:45)
[2019-03-22] MEDS: ENOXAPARIN INJ 40 MG/0.4 ML SYR SQ SCH (20:46)
[2019-03-22] MEDS ORDERED: SODIUM CHLORIDE 0.65% NA SOLN 45 ML (OCEAN) ONE (21:20)
[2019-03-23] MEDS: ALBUT/IPRATROP 3MG/0.5MG NEB 3 ML VIAL NEB SCH ×3 (03:09→11:19)
[2019-03-23] MEDS: KETOROLAC TROMETHAMINE 15 MG/ML VIAL IV PRN ×2 (04:07→11:51)
[2019-03-23 06:19] LABS: Eosinophils # (auto) 0.09 K/uL (0-0.5); Eosinophils % (auto) 1.6 %; Hematocrit (blood only) 28.9 % (37-47); Hemoglobin 9.9 g/dL (12.0-16.0); Immature Granulocytes # (auto) 0.02 K/uL (0.00-0.02); Immature Granulocytes % (auto) 0.4 %; Lymphocytes # (auto) 2.12 K/uL (1.2-3.4); Lymphocytes % (auto) 37.3 %; Mean Corpuscular Hgb Conc 34.3 g/dL (32-36); Mean Corpuscular Volume 87.6 fL (80-100); Mean Platelet Volume 8.6 fL (7.4-10.4); Monocytes # (auto) 0.76 K/uL (0.11-0.59); Monocytes % (auto) 13.4 %; Neutrophils % (auto) 47.3 %; Platelet Count 389 K/uL (130-400); RDW Coefficient of Variation 13.4 % (11.5-14.5); RDW Standard Deviation 43.4 fL (36.4-46.3); White Blood Count 5.69 K/uL (4.8-10.8)
[2019-03-23 06:54] LABS: BUN Creatinine Ratio 28.3 (10-20); Blood Urea Nitrogen 15 mg/dl (7-18); Calcium 8.3 mg/dl (8.5-10.1); Carbon Dioxide 27 mmol/L (21-32); Chloride 103 mmol/L (98-107); Creatinine Clr Calc Pharmacy 151.6 ml/min; Est GFR (African American) > 150.0; Glucose 70 mg/dl (70-99); Sodium 138 mmol/L (136-145)
[2019-03-23] MEDS: NITROFURANTOIN MONOHYDRATE 100 MG CAP PO SCH (08:11)
[2019-03-23] MEDS: MULTIVITAMIN TAB PO SCH (08:11)
[2019-03-23] MEDS: guaiFENesin 600 MG TABCR PO SCH (08:11)
[2019-03-23] MEDS: LEVOMILNACIPRAN HCL PO SCH (08:11)
[2019-03-23] MEDS: VYVANSE PO SCH (08:14)
--- NOTE | 2019-03-23 11:17 | Discharge Summary ---
Date of Service March 23, 2019 Admission HPI Per Admitting Provider Patient is a 28 years old female from [place] without significant past medical history who presented to the emergency department for evaluation of fever cough and difficulty breathing. Patient states that she initially started with a low-grade fever 4 to 5 days ago. Patient denies any sick contacts. Patient is usually very healthy. Patient reports that in the past 24 hours she has worsening of her symptoms and nothing helped her to relieve it. Patient also reports having left lateral chest wall pain and cough that is becoming more productive. Patient takes control pills but denied any recent travel history. Patient was in the urgent care yesterday when she was given cough suppressant but that did not help her symptoms. This morning patient went to the urgent care again and at that point she was referred to the emergency room for further evaluation and treatment. She denies headache, dysuria, melena, nausea, vomiting. WBCs 14.68, hemoglobin 11.0 hematocrit 31.3 platelets 356, d- dimer 3790. ABG pH 7.44 PCO2 39, PO2 23, HCO3 26, sodium 133, potassium 3, chloride 99, BUN 17, creatinine 0.9, GFR 88.2 lactate 2.1 repeated 2, AST 24, ALT 24, troponin 0.015, Albumin 2.3, procalcitonin 9.6, TSH 1.44. Urine is cloudy with 1+, urine bacteria 4+, protein, 2+ blood, leukocyte esterase 1+, urine WBCs 30,urine test negative. Influenza AMB negative. CTA of the chest shows complete consolidation of the left lower lobe with truncation of the proximal left lower lobe bronchial strictures. Possibly of aspiration and of mucous plugging is considered. Small left pleural effusion. Minimal scattered atelectatic changes of the right lung. No evidence of major central pulmonary embolus. Negative thoracic aorta. Patient is not on her period. Decision was made to admit patient for pneumonia and further evaluation and treatment. Admission Exam Per Admitting Provider Constitutional: WD/WN, vitals as above well developed and + obese Eyes: PERRL, conjunctivae normal, anicteric sclerae ENMT: external ear and nose normal, oropharynx normal Neck: trachea midline, no thyromegaly Respiratory: + respiratory distress, + labored breathing, + dullness to percussion, + cough and + tachypneic Auscultation: + crackles and + wheezes Cardiovascular: Rate/Rhythm: + tachycardic Heart Sounds: normal S1 and normal S2 Vessels: dorsalis pedis pulses present Chest (Breasts): normal inspection/palpation of breasts Gastrointestinal (Abdomen): normal bowel sounds, soft, nontender, no hepatosplenomegaly Musculoskeletal: no cyanosis or clubbing, extremities motor strength 5/5 Skin: no rashes, warm and dry Neurologic: patellar DTR's 2+ bilat, sensation intact Psychiatric: A+Ox3, euthymic affect Genitourinary: No suprapubic tenderness or costovertebral angle tenderness Lymphatic: no cervical or axillary lymphadenopathy Principal Diagnosis 1. Acute community-acquired pneumonia 2. Urinary tract infection with E. coli sensitive to nitrofurantoin 3. Sepsis, now resolved Discharge Exam Gen: AAOx3, NAD HEENT: neck supple, no JVD. MMM. Heart: RR, no murmurs Lungs: Diminished at bases with better aeration in the left lower lobe than previous. No dullness to percussion. Abd: soft, nontender, nondistended. Normal BS Neuro: awake, alert. Nonfocal Psych: appropriate mood and affect Ext: No clubbing, cyanosis, edema Discharge Data Allergies Allergy/AdvReac Type Severity Reaction Status Date / Time azithromycin Allergy Mild Hives Unverified 03/20/19 13:19 cefazolin Allergy Mild Hives Unverified 03/20/19 13:19 Consultations 03/20/19 14:02 ED Decision to Admit Stat Ordered Studies 03/20/19 11:35 CT angio chest PE protocol Stat 03/20/19 20:51 CT abd pelvis wo con Stat Hospital Course (1) Left lower lobe pneumonia: Patient currently being treated for community acquired pneumonia. Was changed over to Levaquin on 03/21 which we can continue. Mycoplasma and Legionella was ordered and is still pending. Has DuoNeb ordered as needed. Can also order flutter valve for secretion mobilization of the patient can tolerate. Patient was seen on the day of discharge with appearance. She does feel better and she is tolerating room air with no problem. She does have a cough and is clearing mucus. Exam reveals that her left base is now aerating much better than previous. We will plan to discharge patient today. I discussed excision of the parents. They are requesting a nebulizer device which we will write for the patient. She will finish 5 more days of Macrobid and Levaquin. She will need a repeat chest x-ray in 4 to 6 weeks to ensure resolution. (2) Urinary tract infection: Patient urine culture growing E. coli, unfortunately resistant to quinolones. We will add Macrobid for short course. This appears to be asymptomatic to the patient. (3) Depression: Stable mood at present. - Continue home meds (4) DVT prophylaxis: Lovenox 40 mg daily Total Time Total Time Spent Total Time Spent (In Minutes): Time spent discharging the patient in excess of 30 minutes. Total Time Includes: Examination of the Patient, Discharge Planning, Medication Reconciliation and Communication With Other Providers Discharge Plan Discharge Items Patient Disposition: Home - Self-Care Reason For Visit: PNEUMONIA, SEPSIS Discharge Diagnosis: 1. Acute community-acquired pneumonia 2. Urinary tract infection with E. coli 3. Acute sepsis, now resolved Condition on Discharge: Good Activity: Per Instructions section Lifting: Gradually increase as tolerated Bathing: No limitations Sexual Activity: When tolerated Exercise/Sports: Gradually increase as tolerated Driving/Machine Use: No limitations Weightbearing: Full weightbearing Non-emergency contact: Primary Care Provider Call non-emergency contact if: your temperature is above 101 Follow-up/Referrals: PCP,NO [Primary Care Provider] - Diet: Regular Addtl Attending Provider Instructions: You will need a follow-up chest x-ray in 4 to 6 weeks to ensure the pneumonia has cleared. Pending Studies at Discharge: No Stand-Alone Forms: [employer], Work/School Release (Inpt), Smoking Cessation Medications and DC Order Prescriptions: New ipratropium-albuterol 0.5 mg-3 mg(2.5 mg base)/3 mL Solution For Nebulization 3 ml NEB Q4R Qty: 1 RF: 0 levofloxacin 750 mg Tablet 750 mg PO DAILY@1100 5 Days Qty: 5 RF: 0 nitrofurantoin monohyd/m-cryst 100 mg Capsule 100 mg PO BID 5 Days Qty: 10 RF: 0 Continued multivitamin Tablet 1 tab PO DAILY RF: 0 Vyvanse 40 mg Capsule 40 mg PO DAILY RF: 0 Control 1 tab PO DAILY RF: 0 Changed Fetzima 120 mg capsule,extended release 24 hr 120 mg PO DAILY Qty: 4 RF: 0 Discharge Orders: Discharge Order (Routine); Ordered 03/23/19 Ordered By: Pieter Georges Admission Data Admit Date/Time: 03/20/19 15:15 Attending Provider: Pieter Georges Admit Provider: José Miguel Adam Primary Care Provider: PCP,NO Other Providers: [place]
[2019-03-23] MEDS: levoFLOXacin 750 MG TAB PO SCH (11:52)
[2019-03-26 07:53] LABS: Mycoplasma pneumoniae Ab, IgG 1.39 H
[2019-03-26 07:55] LABS: Mycoplasma pneumoniae Ab, IgM 506
== END 2019-03-23 13:32 | disposition home or self-care (01) | DRG 871 ==
LOC: ED 11:01 → SUATTDRO 15:15 → 2S 15:15